=== PATIENT | male | born 1965 | race Caucasian/White ===

== ENCOUNTER 2016-07-24 19:01 | Inpatient (IN) | payer OTHER ==
[~2016-07-24] VITALS: Ht 182.9 cm; Wt 94.8 kg
[~2016-07-24 19:01] MED LIST: LISI2.5T5 PO; METF1000 PO; NAPR500T1 PO; TRAZ-286 PO
[2016-07-24 19:12] VITALS: BP 120/77
--- NOTE | 2016-07-24 19:12 | NUR ---
50 Y/O M BIBA FOR EVALUATION OF CHEST PAIN X5 MONTHS. PT STATES THE CP STARTED AT X-MAS AND HAS NOT GOTTEN BETTER. HX DM, HYPERLIPIDEMIA AND PSYCH ISSUES. O2 SAT 90-91 %, PLACED IN O2 2 LT VIA NC. ER MD NOTIFIED.
[2016-07-24] MEDS ORDERED: SITA100T8 PO (19:16)
[2016-07-24] MEDS ORDERED: SIMV20TA1 PO (19:16)
--- NOTE | 2016-07-24 19:18 | NUR ---
PT JOSIAH ALS. TAKEN TO BED 6
[2016-07-24] MEDS ORDERED: NACL 0.9% 1,000 ML IV ONE (19:30)
[2016-07-24] MEDS ORDERED: ASPIRIN 81 MG TAB.CHEW PO ONE (19:30)
--- NOTE | 2016-07-24 19:34 | NUR ---
Dr. Berman evaluating patient at bedside.
--- NOTE | 2016-07-24 19:46 | NUR ---
X-Ray at bedside.
[2016-07-24] MEDS ORDERED: ALBUTEROL SULFATE/IPRATROPIU 3 ML SOL IH ONE (19:50)
[2016-07-24] MEDS ORDERED: PIPERACILLIN/TAZOBACTAM 3.375 GM in DEXTROSE 5% 50 ML IV ONE (20:10)
--- NOTE | 2016-07-24 20:10 | NUR ---
Respiratory Therapist at bedside for respiratory intervention
[2016-07-24] MEDS ORDERED: PIPERACILLIN/TAZOBACTAM 3.375 GM VIAL IV ONE (20:23)
[2016-07-24] MEDS ORDERED: MORPHINE SULFATE 2 MG/ML SYR IVP ONE (20:25)
[2016-07-24 20:37] LABS: CALCIUM 8.9 mg/dL (8.5-10.1); CARBON DIOXIDE 30.9 mmol/L (21-32); CREATININE 0.7 mg/dL (0.6-1.3); POTASSIUM 3.9 mmol/L (3.5-5.1)
[2016-07-24 20:41] LABS: ALBUMIN 3.1 g/dL (3.4-5.0); TOTAL BILIRUBIN 0.3 mg/dL (0.0-1.0); TOTAL PROTEIN, SERUM 7.8 g/dL (6.4-8.2)
[2016-07-24 20:45] LABS: EOSINOPHILS % (AUTO) 4.4 % (0.0-4.0)
[2016-07-24 20:48] LABS: BASOPHILS # (AUTO) 0.2 K/uL (0.00-0.22); BASOPHILS % (AUTO) 1.6 % (0.0-2.0); EOSINOPHILS # (AUTO) 0.6 K/uL (0-0.4); HEMATOCRIT 38.9 % (36-52); HEMOGLOBIN 12.4 g/dL (12.0-18.0); LYMPHOCYTES # (AUTO) 2.5 K/uL (2.0-11.5); LYMPHOCYTES % (AUTO) 18.8 % (20.5-51.1); MEAN CORPUSCULAR HEMOGLOBIN 27 pg (27-31); MEAN CORPUSCULAR HGB CONC 32 g/dL (33-37); MEAN CORPUSCULAR VOLUME 83 fL (80-94); MONOCYTES # (AUTO) 0.9 K/uL (0.8-1.0); MONOCYTES % (AUTO) 6.5 % (1.7-9.3); NEUTROPHILS # (AUTO) 8.9 K/uL (1.8-7.7); NEUTROPHILS % (AUTO) 68.7 % (42.2-75.2); PLATELET COUNT (AUTO) 147 K/uL (140-450); RED BLOOD CELL COUNT(AUTO) 4.66 MIL/uL (4.20-6.10); WHITE BLOOD COUNT (AUTO) 13.1 K/uL (4.8-10.8)
[2016-07-24 20:49] LABS: AMPHETAMINE, URINE POS. ng/ml (NEG <=1000); BARBITURATE, URINE NEG. ng/ml (NEG <=200); BENZODIAZEPINE, URINE NEG. ng/mL (NEG <=200); CANNABINOID, URINE NEG. ng/mL (NEG <=50); COCAINE, URINE NEG. ng/mL (NEG <=300); OPIATE, URINE NEG. ng/mL (NEG <=2000); PHENCYCLIDINE SCREEN,URINE NEG. ng/mL (NEG <=25)
[2016-07-24 20:51] LABS: INR 1.1 (0.8-1.2); PARTIAL THROMBOPLASTIN TIME 22.1 secs (22-35.6); PROTHROMBIN TIME 10.1 secs (10.8-13.4)
[2016-07-24] MEDS ORDERED: INSULIN LISPRO SLIDING SCALE 100 UNITS/ML VIAL SUBQ PRN (21:05)
[2016-07-24] MEDS ORDERED: LORazepam 2 MG/ML VIAL IVP PRN (21:05)
[2016-07-24] MEDS ORDERED: MORPHINE SULFATE 2 MG/ML SYR IVP PRN (21:05)
[2016-07-24] MEDS ORDERED: ACETAMINOPHEN 325 MG TAB PO PRN (21:05)
[2016-07-24] MEDS ORDERED: DEXTROSE 50% 50 ML SYR IVP PRN (21:05)
[2016-07-24] MEDS: NACL 0.9% 1,000 ML IV SCH (21:05)
[2016-07-24] MEDS ORDERED: AZITHROMYCIN 500 MG in DEXTROSE 5% 250 ML IV SCH (21:05)
[2016-07-24] MEDS ORDERED: ONDANSETRON 4 MG/2 ML VIAL IVP PRN (21:05)
--- NOTE | 2016-07-24 21:30 | NUR ---
Patient will be admitted to [facility]. Admited to TELEMETRY. Will go to [facility]. Belongings list completed. Report to AYDEN ESCOBAR.
--- NOTE | 2016-07-24 21:43 | NUR ---
PT TRASFERRED TO TELEMETRY VIA [id number]. ACCOMPANIED BY RN AND EMT. NO S/S OF DISTRESS NOTED ON TRASFER.
--- NOTE | 2016-07-24 21:45 | NUR ---
ADMITTED 50 YEAR OLD MALE FROM ER. PT ARRIVED TO UNIT VIA GURNEY. INITIAL ASSESSMENT COMPLETED. PT AAOX4. PT AMBULATORY. VS STABLE. PT ON O2 2L NC SATING AT 98%. PT'S SKIN IS INTACT. PT HAS IV ON LEFT HAND G 20 INFUSING FLUIDS WELL. PT DENIES DISCOMFORT/PAIN AT THIS TIME. PT STATES THAT HE IS VERY HUNGRY. PROVIDED PT WITH A TURKEY SANDWICH. PT IS ON A CARDIAC DIET. ORIENTED PT TO ROOM AND SURROUNDINGS AND USE OF CALL LIGHT. EXPLAINED PLAN OF CARE TO PT AND HE VERBALIZES UNDERSTANDING. SAFETY MEASURES IN PLACE. CALL LIGHT WITHIN REACH.
[2016-07-24] MEDS ORDERED: cefTRIAXone 1,000 MG VIAL ONE (22:14)
[2016-07-24] MEDS ORDERED: AZITHROMYCIN 500 MG INJ VIAL IV ONE (22:58)
--- NOTE | 2016-07-24 23:39 | NUR ---
PT COMPLAINING OF RIGHT ARM PAIN 08/16. VS STABLE, WILL MEDICATE ORDERED.
[2016-07-24] MEDS: HYDROcodone/APAP 5/325 MG 1 TAB TAB PO PRN (23:41)
[2016-07-25] VITALS: BP 129/73
[2016-07-25] MEDS: ALBUTEROL 0.083% 2.5 MG/3 ML NEBU IH SCH ×3 (00:24→13:34)
--- NOTE | 2016-07-25 00:24 | NUR ---
RT AT BEDSIDE. CALL LIGHT WITHIN REACH.
--- NOTE | 2016-07-25 03:01 | NUR ---
PT ACCIDENTALLY PULLED OUT IV. IV TIP INTACT. NEW IV STARTED ON LEFT HAND G 20. FIRST ATTEMPT, PT TOLERATED IT WILL. WILL CONTINUE TO MONITOR PT.
--- NOTE | 2016-07-25 03:53 | NUR ---
EXTENSION EDGER AT BEDSIDE DRAWING BLOOD.
[2016-07-25 03:57] LABS: BASOPHILS # (AUTO) 0.1 K/uL (0.00-0.22); BASOPHILS % (AUTO) 1.2 % (0.0-2.0); EOSINOPHILS # (AUTO) 0.4 K/uL (0-0.4); EOSINOPHILS % (AUTO) 4.6 % (0.0-4.0); HEMATOCRIT 37.7 % (36-52); HEMOGLOBIN 12.2 g/dL (12.0-18.0); LYMPHOCYTES % (AUTO) 23.3 % (20.5-51.1); MEAN CORPUSCULAR HEMOGLOBIN 27 pg (27-31); MEAN CORPUSCULAR HGB CONC 32 g/dL (33-37); MEAN CORPUSCULAR VOLUME 83 fL (80-94); MONOCYTES # (AUTO) 0.6 K/uL (0.8-1.0); MONOCYTES % (AUTO) 6.9 % (1.7-9.3); NEUTROPHILS # (AUTO) 5.4 K/uL (1.8-7.7); PLATELET COUNT (AUTO) 290 K/uL (140-450); RED BLOOD CELL COUNT(AUTO) 4.57 MIL/uL (4.20-6.10); RED CELL DISTRIBUTION WIDTH 14.3 % (11.6-13.7); WHITE BLOOD COUNT (AUTO) 8.5 K/uL (4.8-10.8)
[2016-07-25 04:00] VITALS: BP 131/75
[2016-07-25 04:27] LABS: ANION GAP 9.5 (8-16); CALCIUM 8.6 mg/dL (8.5-10.1); CARBON DIOXIDE 31.4 mmol/L (21-32); CREATININE 0.8 mg/dL (0.6-1.3); POTASSIUM 3.9 mmol/L (3.5-5.1)
[2016-07-25 04:42] LABS: CREATINE KINASE MB 0.7 ng/mL (0-3.6)
--- NOTE | 2016-07-25 05:24 | NUR ---
PT SLEEPING; NO SIGNS OF DISTRESS NOTED. UNLABORED BREATHING. CALL LIGHT WITHIN REACH.
[2016-07-25] MEDS: BLOOD GLUCOSE MONITORING 1 DEV DEV FS SCH ×2 (07:09→11:30)
--- NOTE | 2016-07-25 07:10 | NUR ---
ENDORSED PLAN OF CARE TO DAY SHIFT NURSE. PT REMAINS IN STABLE CONDITION.
--- NOTE | 2016-07-25 07:15 | NUR ---
RECEIVED REPORT FROM AYDEN ESCOBAR. PT IS SLEEPING IN BED BUT EASILY AWAKEN, PT IS A/OX4, AMBULATES WITH ASSIST, IV IS ON THE LEFT HAND, PATENT, INTACT, FLUSHING WELL, SKIN IS INTACT, PT IS ON O2 2L NC, NO S/S OF RESPIRATORY DISTRESS OR DISCOMFORT NOTED, SAFETY/FALL PRECAUTIONS ARE IN PLACE, DISCUSSED PLAN OF CARE WITH PT, PT VERBALIZED UNDERSTANDING, CALL LIGHT IS WITHIN REACH, WILL CONTINUE TO MONITOR.
--- NOTE | 2016-07-25 07:28 | NUR ---
PATIENT WITH BREAKFAST TRAY AT THIS TIME DENIES SOB LIGHT EQUIPMENT OPERATOR TO ATTEMPT HHN THERAPY AT A LATER TIME
[2016-07-25 08:00] VITALS: BP 137/84
[2016-07-25] MEDS ORDERED: metFORMIN 500 MG TAB PO SCH (09:00)
[2016-07-25] MEDS ORDERED: ENOXAPARIN 40 MG/0.4 ML SYR SUBQ SCH (09:00)
[2016-07-25] MEDS ORDERED: ASPIRIN 81 MG TAB.CHEW PO SCH (09:00)
[2016-07-25] MEDS ORDERED: SIMVASTATIN 20 MG TAB PO SCH (09:00)
[2016-07-25] MEDS: HYDROcodone/APAP 5/325 MG 1 TAB TAB PO PRN (09:23)
--- NOTE | 2016-07-25 09:23 | NUR ---
PT COMPLAINED OF A 10/10 GENERALIZED PAIN, WILL MEDICATE WITH PRN PAIN MEDICATION AT THIS TIME.
--- NOTE | 2016-07-25 09:58 | NUR ---
PATIENT HAS BEEN SCREENED AND CATEGORIZED MODERATE NUTRITION RISK. PATIENT WILL BE SEEN WITHIN 3-5 DAYS OF ADMISSION. 07/27/16-07/29/[address]
[2016-07-25] MEDS: NACL 0.9% 1,000 ML IV SCH (10:03)
--- NOTE | 2016-07-25 11:30 | NUR ---
PT RESTING IN BED, NO S/S OF RESPIRATORY DISTRESS OR DISCOMFORT NOTED, CALL LIGHT WITHIN, WILL CONTINUE TO MONITOR.
[2016-07-25 12:00] VITALS: BP 125/96
[2016-07-25 12:19] LABS: CREATINE KINASE MB 0.6 ng/mL (0-3.6)
[2016-07-25] MEDS ORDERED: MAGNESIUM CHLORIDE 64 MG TABEC PO SCH (13:00)
--- NOTE | 2016-07-25 13:30 | NUR ---
PT RESTING IN BED, WATCHING TV AT THIS TIME, CALL LIGHT WITHIN REACH.
--- NOTE | 2016-07-25 15:16 | NUR ---
Clinical review faxed to [facility] at [phone].
--- NOTE | 2016-07-25 15:30 | NUR ---
ASSISTED PT TO THE RESTROOM AND BACK INTO BED.
--- NOTE | 2016-07-25 16:00 | NUR ---
DISCHARGE INSTRUCTIONS GIVEN, ID WRIST REMOVED, IV REMOVED, CATHETER TIP INTACT, PT WAITING ON HIS SISTER TO PICK HIM UP.
[2016-07-25] MEDS ORDERED: traZODone 50 MG TAB PO SCH (17:00)
--- NOTE | 2016-07-25 17:20 | NUR ---
FAMILY MEMBER HERE TO SENIOR SOFTWARE TEST ENGINEER PT, PT LEFT IN STABLE CONDITION.
== END 2016-07-25 16:00 | disposition home or self-care (01) | DRG 861 ==
LOC: MED 19:01 → MTU 21:11
PROVIDERS: ADMIT Hospitalist; ATTEND Hospitalist
DX: R52 Pain, unspecified (principal); I10 Essential (primary) hypertension; J44.9 Chronic obstructive pulmonary disease, unspecified; E11.9 Type 2 diabetes mellitus without complications; F15.10 Other stimulant abuse, uncomplicated; Z88.6 Allergy status to analgesic agent; Z87.891 Personal history of nicotine dependence; Z71.51 Drug abuse counseling and surveillance of drug abuser
CPT/HCPCS: 36415; 71010; 80048; 80053; 80305; 82550; 82553; 82948; 83735; 84484; 85025; 85610; 85730; 87040; 87081; 93005; 94640; 96361; 96365; 96375; 97110; 99285; J0456; J0696; J1650; J1815; J2270; J2543; J7030; J7060; J7613; J7620; Q0092

== ENCOUNTER 2020-01-20 09:35 | Day surgery (SDC) | payer OTHER, SELFPAY ==
[~2020-01-20] VITALS: Ht 182.9 cm; Wt 99.8 kg
[~2020-01-20 09:35] MED LIST changes: -LISI2.5T5 PO; -NAPR500T1 PO; +SIMV20TA1 PO; +SITA100T8 PO; -TRAZ-286 PO; +TRAZ-343 PO
[2020-01-20] MEDS ORDERED: fentaNYL citrate 0.05 MG/ML VIAL ONE (11:03)
[2020-01-20] MEDS ORDERED: MIDAZOLAM 5 MG/5 ML VIAL ONE (11:03)
[2020-01-20] MEDS ORDERED: LIDOCAINE 2% 1000 MG/50 ML VIAL INJ ONE (11:04)
[2020-01-20] MEDS ORDERED: fentaNYL citrate 0.05 MG/ML VIAL IVP ONE (12:00)
== END 2020-01-20 12:50 | disposition home or self-care (01) ==
LOC: MDS 09:35 → MMU 09:36 → MDS 12:50
PROVIDERS: ATTEND Internal Medicine Gastroenterology
DX: K83.1 Obstruction of bile duct (principal); M06.9 Rheumatoid arthritis, unspecified; Z87.891 Personal history of nicotine dependence; J84.10 Pulmonary fibrosis, unspecified; Z79.84 Long term (current) use of oral hypoglycemic drugs; Z79.899 Other long term (current) drug therapy
CPT/HCPCS: 47000; 76942; 87426; J2001; J3010; J2250

== ENCOUNTER 2020-02-10 06:00 | Day surgery (SDC) | payer OTHER, SELFPAY ==
[~2020-02-10] VITALS: Ht 182.9 cm; Wt 97.1 kg
[2020-02-10 06:51] LABS: BASOPHILS # (AUTO) 0.1 K/uL (0.00-0.22); BASOPHILS % (AUTO) 1.2 % (0.0-2.0); EOSINOPHILS # (AUTO) 0.2 K/uL (0-0.4); EOSINOPHILS % (AUTO) 2.8 % (0.0-4.0); HEMATOCRIT 35.4 % (36-52); HEMOGLOBIN 11.8 g/dL (12.0-18.0); LYMPHOCYTES # (AUTO) 1.9 K/uL (2.0-11.5); LYMPHOCYTES % (AUTO) 24.6 % (20.5-51.1); MEAN CORPUSCULAR HEMOGLOBIN 27 pg (27-31); MEAN CORPUSCULAR HGB CONC 33 g/dL (33-37); MONOCYTES # (AUTO) 0.6 K/uL (0.8-1.0); MONOCYTES % (AUTO) 7.5 % (1.7-9.3); NEUTROPHILS # (AUTO) 4.8 K/uL (1.8-7.7); NEUTROPHILS % (AUTO) 63.9 % (42.2-75.2); PLATELET COUNT (AUTO) 352 K/uL (140-450); RED BLOOD CELL COUNT(AUTO) 4.32 MIL/uL (4.20-6.10); RED CELL DISTRIBUTION WIDTH 15.3 % (11.6-13.7); WHITE BLOOD COUNT (AUTO) 7.6 K/uL (4.8-10.8)
[2020-02-10 07:08] LABS: ALBUMIN 3.2 g/dL (3.4-5.0); CARBON DIOXIDE 29.7 mmol/L (21-32); CREATININE 0.7 mg/dL (0.6-1.3); POTASSIUM 3.7 mmol/L (3.5-5.1); TOTAL BILIRUBIN 0.2 mg/dL (0.0-1.0)
[2020-02-10] MEDS ORDERED: PROPOFOL 200 MG/20 ML VIAL IV ONE (07:30)
== END 2020-02-10 10:15 | disposition home or self-care (01) ==
LOC: MDS 06:00 → MFCC 06:02 → MDS 10:15
PROVIDERS: ATTEND Internal Medicine Gastroenterology
DX: K80.51 Calculus of bile duct without cholangitis or cholecystitis with obstruction (principal); I10 Essential (primary) hypertension; E11.9 Type 2 diabetes mellitus without complications; M06.9 Rheumatoid arthritis, unspecified; Z79.84 Long term (current) use of oral hypoglycemic drugs; Z79.899 Other long term (current) drug therapy; Z20.828 Contact with and (suspected) exposure to other viral communicable diseases
CPT/HCPCS: 36415; 43275; 71045; 74328; 80053; 85025; 93005; C1713; J2704; U0003; 74330

== ENCOUNTER 2021-01-18 09:15 | Day surgery (SDC) | payer OTHER, SELFPAY ==
[~2021-01-18] VITALS: Ht 182.9 cm; Wt 106.1 kg
[2021-01-18] MEDS ORDERED: fentaNYL citrate 0.05 MG/ML VIAL ONE (12:54)
[2021-01-18] MEDS ORDERED: LIDOCAINE 2% 100 MG/5 ML UJET TP ONE (12:54)
[2021-01-18] MEDS ORDERED: MIDAZOLAM 2 MG/2 ML VIAL ONE (13:03)
[2021-01-18] MEDS ORDERED: MIDAZOLAM 2 MG/2 ML VIAL IVP ONE (14:25)
[2021-01-18] MEDS ORDERED: fentaNYL citrate 0.05 MG/ML VIAL IVP ONE (14:25)
== END 2021-01-18 14:09 | disposition home or self-care (01) ==
LOC: MOR 09:15 → MMU 09:22 → MOR 14:09
PROVIDERS: ATTEND Internal Medicine Gastroenterology
DX: Z12.11 Encounter for screening for malignant neoplasm of colon (principal); K63.5 Polyp of colon; K57.30 Diverticulosis of large intestine without perforation or abscess without bleeding; E11.9 Type 2 diabetes mellitus without complications; D63.8 Anemia in other chronic diseases classified elsewhere; Z90.49 Acquired absence of other specified parts of digestive tract; Z20.822 Contact with and (suspected) exposure to COVID-19; Z79.84 Long term (current) use of oral hypoglycemic drugs; Z79.899 Other long term (current) drug therapy
CPT/HCPCS: 45385; 82948; 87426; J2250; J3010